=== PATIENT | female | born 1990 | race American Indian/Alaskan Native ===

== ENCOUNTER 2017-04-03 06:50 | Emergency (ER) | payer OTHER ==
[2017-04-03 07:32] VITALS: BP 126/95
[2017-04-03 08:05] LABS: Basophils % (Auto) 0.5 % (0.0-1.8); Eosinophils % (Auto) 5.9 % (0.0-4.3); Hematocrit 38.1 % (30.3-42.9); Hemoglobin 12.6 gm/dl (10.1-14.3); Mean Corpuscular HGB Conc 33 % (30-34); Mean Corpuscular Hemoglobin 28 pg (28-32); Mean Corpuscular Volume 85 fl (79-97); Platelet Count 368 K/mm3 (140-440); Red Blood Count 4.47 M/mm3 (3.65-5.03); Red Cell Distribution Width 13.1 % (13.2-15.2); White Blood Count 5.5 K/mm3 (4.5-11.0)
--- NOTE | 2017-04-03 09:43 | Ultrasound Report ---
ULTRASOUND OB LESS THAN 14 WEEKS FETUS ULTRASOUND OB TRANSVAGINAL HISTORY: Vaginal bleeding, 9 weeks . TECHNIQUE: Transabdominal and transvaginal ultrasound with color doppler interrogation. The uterus is anteverted and measures 13 x 8 x 9 cm. An intrauterine gestational sac is identified containing a pole and yolk sac. [place]-rump length measures 18.1 mm which correlates with a 8 week, 2 day . Estimated due date 11/11/17. heart rate measures 168 beats per minute. A small subchorionic hemorrhage is identified along the anterior, inferior gestational sac. The ovaries are normal size, contour and echotexture. No adnexal cyst or mass. No pelvic fluid collection. IMPRESSION: Viable, single intrauterine as described. Small subchorionic hemorrhage.
--- NOTE | 2017-04-03 09:43 | Ultrasound Report ---
ULTRASOUND OB LESS THAN 14 WEEKS FETUS ULTRASOUND OB TRANSVAGINAL HISTORY: Vaginal bleeding, 9 weeks . TECHNIQUE: Transabdominal and transvaginal ultrasound with color doppler interrogation. The uterus is anteverted and measures 13 x 8 x 9 cm. An intrauterine gestational sac is identified containing a pole and yolk sac. [place]-rump length measures 18.1 mm which correlates with a 8 week, 2 day . Estimated due date 11/11/17. heart rate measures 168 beats per minute. A small subchorionic hemorrhage is identified along the anterior, inferior gestational sac. The ovaries are normal size, contour and echotexture. No adnexal cyst or mass. No pelvic fluid collection. IMPRESSION: Viable, single intrauterine as described. Small subchorionic hemorrhage.
[2017-04-03 13:00] LABS: Bacteria,Urine 1+ /HPF (Negative); Bilirubin,Urine NEG (Negative); Blood,Urine LG (Negative); Ketones,Urine 20 mg/dL (Negative); Leukocyte Esterase,Urine NEG (Negative); Mucus,Urine 3+ /HPF; Nitrite,Urine NEG (Negative); Protein,Urine <15 mg/dL mg/dL (Negative); Urobilinogen,Urine < 2.0 mg/dL (<2.0)
== END 2017-04-03 20:30 | disposition left against medical advice (07) ==
LOC: ED 06:50
DX: O46.91 Antepartum hemorrhage, unspecified, first trimester (principal); Z3A.09 9 weeks gestation of pregnancy; Z53.21 Procedure and treatment not carried out due to patient leaving prior to being seen by health care provider
CPT/HCPCS: 36415; 76801; 76817; 81001; 84702; 85025; 86850; 86900; 86901